=== PATIENT | male | born 1995 | race African-American/Black ===

== ENCOUNTER 2019-04-06 15:54 | Emergency (ER) | payer SELFPAY ==
[~2019-04-06] VITALS: Ht 172.7 cm; Wt 65.3 kg
[2019-04-06 16:04] VITALS: BP 117/68
[2019-04-06] MEDS ORDERED: AMOX500T PO (16:19)
--- NOTE | 2019-04-06 16:19 | PHYS DOC ---
Past History Past Medical History: No Pertinent History Past Surgical History: No Surgical History Alcohol Use: None Drug Use: Marijuana Adult General Chief Complaint Chief Complaint: EARACHE/EAR PAIN HPI HPI Patient is a healthy 24-year-old male who presents to the emergency department for evaluation. He states he has had nasal congestion and a cough productive of some yellowish sputum for the past 2 days, but will put him into the emergency department is that he developed some left ear pain over the past few days. He has not had any fevers, and denies any significant shortness of breath, or headache. He has had decreased hearing out of his left side. Describes the pain as a pressure. He denies any headache. There are no alleviating or exacerbating factors to his symptoms. Review of Systems Review of Systems Constitutional: Denies fever or chills [] Eyes: Denies change in visual acuity, redness, or eye pain [] HENT: Reports nasal congestion. Denies sore throat [] Respiratory: Denies shortness of breath [] GI: Denies abdominal pain, nausea, vomiting, bloody stools or diarrhea [] : Denies dysuria or hematuria [] Musculoskeletal: Denies back pain or joint pain [] Integument: Denies rash or skin lesions [] Neurologic: Denies headache, focal weakness or sensory changes [] Allergies Allergies Allergies Coded Allergies Type Severity Reaction Last Updated Verified No Known Drug Allergies 04/06/19 No Physical Exam Physical Exam PHYSICAL EXAM: CONSTITUTIONAL: Well developed, well nourished HEAD: normocephalic, atraumatic EENT: PERRL, EOMI. Conjunctivae normal color, sclerae non-icteric; moist mucous membranes. Nasal congestion is present.] Tympanic membranes normal. The left tympanic membranes is erythematous and mildly thickened and distended, consistent with acute otitis media. The external auditory canals normal. There is no mastoid or tragal tenderness to palpation. NECK: Supple, non-tender; no meningismus. LUNGS: Lungs CTA, breathing even and unlabored. Normal air movement. HEART: Regular rate and rhythm, no murmur CHEST: No deformity; non-tender ABDOMEN: The abdomen is soft, and non-tender, no masses or bruits. EXTREM: Normal ROM; no deformity, no calf tenderness. Normal pulses palpable in all extremities. There is no pedal edema. SKIN: No rash; no diaphoresis NEURO: Alert; normal speech and cognition; CN's grossly intact; strength grossly intact without focal deficit. BACK: No CVA TTP. Current Patient Data Vital Signs Vital Signs Date Time Temp Pulse Resp B/P (MAP) Pulse Ox O2 Delivery O2 Flow Rate FiO2 04/06/19 16:04 97.8 65 16 99 Room Air EKG EKG [] Radiology/Procedures Radiology/Procedures [] Course & Med Decision Making Course & Med Decision Making I discussed diagnosis and care plan with the patient, the need for close follow- up and return precautions. Dragon Disclaimer Dragon Disclaimer This electronic medical record was generated, in whole or in part, using a voice recognition dictation system. Departure Departure: Impression: Primary Impression: Acute otitis media Additional Impression: Upper respiratory infection Disposition: 01 HOME, SELF-CARE Condition: STABLE Patient Instructions: Otitis Media, Adult, Upper Respiratory Infection, Adult Scripts Amoxicillin (AMOXICILLIN) 500 Mg Tablet 1 TAB PO TID for -, #30 TAB Prov: SATISH BURRIS MD 04/06/19 Problem Qualifiers SATISH BURRIS MD Apr 06, 2019 16:19
== END 2019-04-06 16:23 | disposition home or self-care (01) ==
LOC: ER 15:54
DX: H66.92 Otitis media, unspecified, left ear (principal); J06.9 Acute upper respiratory infection, unspecified
CPT/HCPCS: 99283